=== PATIENT | male | born 1945 | race Caucasian/White ===

== ENCOUNTER 2019-12-04 16:27 | Outpatient (CLI) | payer MEDICARE ==
[2019-12-04 16:45] LABS: C DIFF ANTIGEN NEGATIVE (NEGATIVE); C DIFF SPECIMEN=DIARRHEA? ACCEPTABLE; C DIFFICILE TOXINS A&B NEGATIVE (Neg)
== END 2019-12-04 23:59 | disposition home or self-care (01) ==
LOC: LAB SPEC 16:27
PROVIDERS: ATTEND Specialist
DX: Z01.812 Encounter for preprocedural laboratory examination (principal); A04.71 Enterocolitis due to Clostridium difficile, recurrent
CPT/HCPCS: 87324; 87449